=== PATIENT | male | born 1945 | race Caucasian/White ===

== ENCOUNTER 2020-06-09 07:39 | Inpatient (IN) | payer OTHER ==
[2020-06-09] MEDS ORDERED: Morphine 4 MG/ML VIAL ONE (08:06)
[2020-06-09 08:15] LABS: #Eosinphils 0.1 10x3/uL (0.0-0.5); #Monocytes 0.7 10x3/uL (0.0-1.1); #Neutrophils 2.8 10x3/uL (1.5-8.4); %Basophils 0.4 % (0.0-2.0); %Eosinophils 1.5 % (0.0-6.0); %Lymphocytes 32.1 % (18.0-47.0); %Monocytes 13.3 % (0.0-10.0); %Neutrophils 52.5 % (40.0-75.0); Hemoglobin 14.6 g/dL (13.5-17.5); Mean Corpuscular HGB CONC 35.3 g/dL (32.0-36.0); Mean Corpuscular Volume 90.8 fl (81.2-95.1); Platelet Count 198 10x3/uL (150-450); RBC Distribution Width 12.4 % (11.5-14.5); Red Blood Cell (RBC) Count 4.56 10x6/uL (4.32-5.72); White Blood Cell (WBC) Count 5.3 10x3/uL (3.5-10.5)
[2020-06-09 08:26] LABS: ALT (SGPT) 33 U/L (8-55); AST (SGOT) 30 U/L (5-34); Albumin 4.2 g/dL (3.4-4.8); Alkaline Phosphatase 80 U/L (40-110); Anion Gap 13 mmol/L (10-20); BUN (Urea Nitrogen) 12 mg/dL (8.4-25.7); Bilirubin, Total 0.6 mg/dL (0.2-1.2); CK (CPK) 130 U/L (30-200); Calc. Creatinine Clearance 0 mL/min (70-130); Carbon Dioxide 26 mmol/L (23-31); Chloride 105 mmol/L (98-107); Globulin 3.3 g/dL (2.4-3.5); Glucose 103 mg/dL (83-110); Lipase 30 U/L (8-78); Potassium 3.6 mmol/L (3.5-5.1); Protein, Total 7.5 g/dL (5.8-8.1); Sodium 140 mmol/L (136-145)
[2020-06-09 13:08] VITALS: BMI 31.5
[2020-06-09 15:13] LABS: Troponin I 0.025 ng/mL (< 0.028)
[2020-06-09] MEDS ORDERED: Metoprolol Tartrate 5 MG/5 ML VIAL IVP SCH (15:45)
[2020-06-09] MEDS ORDERED: Ondansetron PF 4 MG/2 ML Vial IVP PRN (17:10)
[2020-06-09] MEDS ORDERED: Acetaminophen 325 MG TAB PO PRN (17:10)
[2020-06-09] MEDS ORDERED: Nitroglycerin 2% Ointment 1 INCH/1 GM Packet TOP PRN (17:13)
[2020-06-09] MEDS: Metoprolol Tartrate 25 MG TAB PO SCH (21:07)
[2020-06-10 04:45] LABS: Cardiac Risk 3.1 (Less than 4.5)
[2020-06-10] MEDS: Levothyroxine Sodium 100 MCG TAB PO SCH (05:11)
[2020-06-10] MEDS ORDERED: Metoprolol Tartrate 5 MG/5 ML VIAL IVP SCH (06:15)
[2020-06-10] MEDS: Aspirin 81 mg Enteric Coated Tablet PO SCH (08:15)
[2020-06-10] MEDS: Metoprolol Tartrate 25 MG TAB PO SCH ×2 (08:15→22:38)
[2020-06-10] MEDS: Amlodipine 5 MG TAB PO SCH (08:16)
[2020-06-10] MEDS: Enoxaparin Sodium 40 MG/0.4 ML SYRINGE SC SCH (08:30)
[2020-06-10 09:38] LABS: Hemoglobin A1c 5.4 % (4.0-6.0)
[2020-06-11] MEDS: Levothyroxine Sodium 100 MCG TAB PO SCH (05:57)
[2020-06-11] MEDS: Enoxaparin Sodium 40 MG/0.4 ML SYRINGE SC SCH (08:55)
[2020-06-11] MEDS: Amlodipine 5 MG TAB PO SCH (08:55)
[2020-06-11] MEDS: Aspirin 81 mg Enteric Coated Tablet PO SCH (08:56)
[2020-06-11] MEDS: Metoprolol Tartrate 25 MG TAB PO SCH (08:56)
[2020-06-11 15:58] VITALS: BP 150/77; TEMP 98.3
== END 2020-06-11 16:20 | DRG 303 ==
LOC: EEVIPCON 07:39 → CSHERS 07:39 → CSHTELE 11:32
PROVIDERS: ADMIT Hospitalist; ATTEND Hospitalist
DX: I25.110 Atherosclerotic heart disease of native coronary artery with unstable angina pectoris (principal); I11.9 Hypertensive heart disease without heart failure; E11.9 Type 2 diabetes mellitus without complications; E78.5 Hyperlipidemia, unspecified; Z95.1 Presence of aortocoronary bypass graft; Z95.5 Presence of coronary angioplasty implant and graft; I48.0 Paroxysmal atrial fibrillation; E03.9 Hypothyroidism, unspecified; M25.552 Pain in left hip; G89.29 Other chronic pain; I45.10 Unspecified right bundle-branch block; E66.9 Obesity, unspecified; Z68.31 Body mass index [BMI] 31.0-31.9, adult
CPT/HCPCS: 71045; 80053; 80061; 82550; 83036; 83690; 84484; 85025; 93005; 93306; 96374; J1650; J2270